=== PATIENT | male | born 1960 | race African-American/Black ===

== ENCOUNTER 2023-08-26 12:02 | Emergency (ER) | payer OTHER ==
[~2023-08-26] VITALS: Ht 177.8 cm; Wt 83.0 kg
[~2023-08-26 12:02] MED LIST: NORVASC; OMEP40CA20 MT; SUCR1ORA15 PO
[2023-08-26 12:08] VITALS: O2SAT 100
[2023-08-26 13:54] LABS: BASOPHILS % 1.3 % (0.0-2.0); EOSINOPHILS % 4.1 % (0.0-5.0); HEMOGLOBIN. 8.3 g/dL (14.0-18.0); LYMPHOCYTES % 14.6 % (20.0-50.0); MEAN CORPUSCULAR HEMOGLOBIN 28.4 pg (28.0-32.0); MEAN CORPUSCULAR HGB CONC 31.9 g/dL (31.0-37.0); MEAN CORPUSCULAR VOLUME 88.9 fL (80.0-94.0); MEAN PLATELET VOLUME 8.6 fl (7.4-10.4); MONOCYTES % 10.2 % (2.0-8.0); NEUTROPHILS % 69.8 % (40.0-76.0); PLATELET 130 x1000/uL (130-400); RED BLOOD CELL COUNT 2.92 mill/uL (4.7-6.1); RED CELL DISTRIBUTION WIDTH 20.9 % (11.6-14.6); WHITE BLOOD COUNT 9.3 x1000/uL (4.5-11.0)
[2023-08-26 14:18] LABS: CHLORIDE 97 mEq/L (98-107); INDEX HEMOLYSI 1 (1-3); INDEX ICTERIC 1 (1-4); INDEX LIPEMIC 1 (1-3); POTASSIUM 4.5 mEq/L (3.5-5.1); SODIUM 131 mEq/L (136-145)
[2023-08-26] MEDS ORDERED: HYDROCODONE/ACETAMINOPHEN 10/325MG TABLET PO NR (14:45)
[2023-08-26 14:53] LABS: ALANINE AMINOTRANSFERASE < 6 IU/L (13-61); ALBUMIN 2.6 g/dL (3.4-5.0); ASPARTATE AMINOTRANSFERASE 28 IU/L (15-37); CALCIUM 9.6 mg/dL (8.5-10.1); CARBON DIOXIDE 25 mEq/L (21-32); GLUCOSE 88 mg/dL (70-105); NT PRO B-TYPE NATRIURETIC PEP 27767 pg/mL (5-125); PROTEIN TOTAL 7.3 g/dL (6.0-8.3); UREA NITROGEN BLOOD 41 mg/dL (7-21)
[2023-08-26 15:33] LABS: CREATININE 7.6 mg/dL (0.6-1.3)
[2023-08-26 16:10] VITALS: BP 136/98; PULSE 92; RESP 16; TEMP 98.2
== END 2023-08-26 16:23 | disposition home or self-care (01) ==
LOC: ER 12:02
DX: I12.0 Hypertensive chronic kidney disease with stage 5 chronic kidney disease or end stage renal disease (principal); N18.6 End stage renal disease
CPT/HCPCS: 80053; 83880; 85025; 36415; 71045; 93005; 99285; Z7610 ×4